=== PATIENT | female | born 1985 | race Caucasian/White ===

== ENCOUNTER 2019-05-20 23:35 | Emergency (ER) | payer MEDICAID ==
[~2019-05-20] VITALS: Ht 165.1 cm; Wt 72.6 kg
[2019-05-21] MEDS ORDERED: cefTRIAXone SOD 1,000 MG VL IM ONE
== END 2019-05-21 00:15 | disposition home or self-care (01) ==
LOC: ER 23:38
DX: L02.413 Cutaneous abscess of right upper limb (principal); F17.210 Nicotine dependence, cigarettes, uncomplicated; F15.10 Other stimulant abuse, uncomplicated; F11.10 Opioid abuse, uncomplicated
CPT/HCPCS: 96372; 99283; J0696